=== PATIENT | male | born 1980 | race Caucasian/White ===

== ENCOUNTER 2017-03-13 19:20 | Emergency (ER) | payer OTHER ==
[~2017-03-13] VITALS: Ht 185.4 cm; Wt 119.0 kg
[~2017-03-13 19:20] MED LIST: ACET-1311 PO; BENZ1CAP90 PO; CHOL1000 PO; CLR10 PO; DEXTLIQ PO; DIVA500T3 PO; FLUO20CA35 PO; FLUO40CA8 PO; LEVO75TA5 PO; LISI-461 PO; POLY99.02 OP; TRAZ50TA35 PO
[2017-03-13 19:27] VITALS: TEMP 36.9; Ht 185.4 cm; Wt 119.0 kg
--- NOTE | 2017-03-13 20:05 | DIAGNOSTIC IMAGING REPORT ---
PA CHEST RADIOGRAPH AND UPRIGHT AND SUPINE AP RADIOGRAPHS OF THE ABDOMEN CLINICAL HISTORY: Left lower quadrant abdominal pain. Evaluate for obstruction. COMPARISON STUDY: CT of the abdomen and pelvis December 19, 2015. FINDINGS: Elevation of the right hemidiaphragm is unchanged. No no pneumothorax or pleural effusion is present. Cardiomediastinal silhouette is unremarkable. There is no evidence of pulmonary edema. There are cholecystectomy clips. There is no free air. There is a massive amount of stool within the colon and rectum consistent with fecal impaction. The amount of stool is greater than that shown on CT of December 19, 2015. There is no evidence for a bowel obstruction. IMPRESSION: 1. Massive amount of stool within the rectum and colon consistent with fecal impaction. No bowel obstruction. No free air. 2. No acute cardiopulmonary findings. Electronically signed by: Renny Grant M.D. 03/13/2017 8:04 PM Dictated Date/Time: 03/13/2017 8:02 PM
[2017-03-13] MEDS ORDERED: DOCU100C31 PO (20:38)
[2017-03-13] MEDS ORDERED: [UNRECOGNIZED DRUG - CODE] PO (20:44)
[2017-03-13] MEDS ORDERED: SENN-61 PO (20:46)
[2017-03-13] MEDS ORDERED: GUAI-13 PO (20:49)
--- NOTE | 2017-03-13 22:52 | EMERGENCY ROOM VISIT NOTE ---
History Report prepared by Toño: Stuart Sorenson Under the Supervision of: Dr. Chtio Lawson M.D. First contact with patient: 19:29 Chief Complaint: ABDOMINAL PAIN Stated Complaint: CONSTIPATION,ABD PAIN History of Present Illness The patient is a 36 year old male who presents to the Emergency Room with complaints of constant, cramping abdominal pain beginning last night. The patient states that he had similar symptoms last year. He reports that last year he was told he was severely constipated, and it stopped his urinary flow to the point that he needed a Escoto catheter. He denies being given enema. The patient notes that he took Miralax this morning, and it did not help. He states that he also had a large glass of prune juice for lunch, and it hasn't helped either. The patient reports that his last bowel movement was two days ago, and it was normal. He notes that his pain does not radiate around to his back, and he denies diarrhea, fevers, and vomiting. Source of History: patient Onset: last night Position: abdomen (lower) Quality: cramping Timing: constant Associated Symptoms: No fevers, No vomiting, No back pain, No diarrhea Review of Systems See HPI for pertinent positives & negatives. A total of 10 systems reviewed and were otherwise negative. Past Medical & Surgical Medical Problems: (1) ADD (attention deficit disorder) (2) Mood disorder Family History No pertinent family history Social History Smoking Status: Never Smoker Alcohol Use: none Drug Use: none Marital Status: single Housing Status: assisted living Current/Historical Medications Scheduled Cholecalciferol (Vitamin D3), 5,000 UNITS PO HS Divalproex Sodium (Depakote Er), 500 MG PO BID Docusate Sodium (Docusate Sodium), 100 MG PO DAILY Fluoxetine (Prozac), 20 MG PO DAILY Fluoxetine (Prozac), 40 MG PO DAILY Levothyroxine Sodium (Levothyroxine Sodium), 75 MCG PO DAILY Lisinopril (Zestril), 10 MG PO DAILY Loratadine (Claritin), 10 MG PO HS Trazodone Hcl (Trazodone), 50 MG PO HS Scheduled PRN Acetaminophen (Tylenol), 650 MG PO Q6H PRN for Pain Artificial Tears (Artificial Tears), 1-2 DROPS OP BID PRN for DRY EYES Benzonatate (Tessalon Perles), 200 MG PO TID PRN for Cough Bismuth Subsalicylate (Masthope Bismuth), 262 MG PO Q1H PRN for Dyspepsia Dextromethorphan-Guaifenesin (Diabetic Tussin Dm), 2 TSP PO Q4H PRN for Cough Guaifenesin (Tussin), 2 TSP PO Q4H PRN for Cough Senna (Senokot), 17.2 MG PO DAILY PRN for Constipation Allergies Coded Allergies: Shellfish (Verified Allergy, Unknown, UNKNOWN, 03/13/17) Physical Exam Vital Signs Date Time Temp Pulse Resp B/P (MAP) Pulse Ox O2 Delivery O2 Flow Rate FiO2 03/13/17 19:27 36.9 85 18 128/72 94 Room Air Physical Exam Constitutional: Vital signs reviewed. Eyes: Pupils are equal round reactive to light. Conjunctiva are noninjected. ENT: Pharynx is clear without erythema or exudate. Mucous membranes are moist. Neck supple without meningeal signs. Respiratory: Clear to auscultation bilaterally. Breath sounds are equal bilaterally. Cardiovascular: Regular rate and rhythm. No rubs or gallops. GI: Soft, nondistended and nontender. Bowel sounds are present. Musculoskeletal: No peripheral edema. No CVA tenderness. Integumentary: No cyanosis. Neurological: The patient is awake and alert. No focal deficits. Psychiatric: Normal affect. Medical Decision & Procedures ER Provider Diagnostic Interpretation: Radiology results as stated below per my review and the radiologist's interpretation: PA CHEST RADIOGRAPH AND UPRIGHT AND SUPINE AP RADIOGRAPHS OF THE ABDOMEN CLINICAL HISTORY: Left lower quadrant abdominal pain. Evaluate for obstruction. COMPARISON STUDY: CT of the abdomen and pelvis December 19, 2015. FINDINGS: Elevation of the right hemidiaphragm is unchanged. No no pneumothorax or pleural effusion is present. Cardiomediastinal silhouette is unremarkable. There is no evidence of pulmonary edema. There are cholecystectomy clips. There is no free air. There is a massive amount of stool within the colon and rectum consistent with fecal impaction. The amount of stool is greater than that shown on CT of December 19, 2015. There is no evidence for a bowel obstruction. IMPRESSION: 1. Massive amount of stool within the rectum and colon consistent with fecal impaction. No bowel obstruction. No free air. 2. No acute cardiopulmonary findings. Electronically signed by: Renny Grant M.D. 03/13/2017 8:04 PM Dictated Date/Time: 03/13/2017 8:02 PM Procedure Manual fecal disimpaction Indication: Fecal impaction The patient was placed on his side with knees up to his chest. I did use copious amounts of lubrication. I did remove a large amount of impacted stool that was claylike in consistency. I was unable to reach any more and the patient attempted to have a bowel movement afterwards. He tolerated the procedure well. No complications. No bleeding was observed. ED Course 1928: The patient was evaluated in room B06. A complete history and physical exam was performed. 2038: I reevaluated the patient, and I updated him of his exam results. 2116: I tried to reevaluate the patient, but he was in the restroom. 2151: I reevaluated the patient, and he has not received his enema yet. He was unable to self-administer it. Medical Decision this is a 36-year-old male who presents with left-sided abdominal pain. Differential diagnosis includes constipation, fecal impaction, diverticulitis, proctitis, kidney stone. I did perform a limited focused review of portions of the patient's old chart on the electronic medical record. The patient had a CT scan in November 2015 which showed significant fecal impaction. Medication Reconciliation: I attest that I have personally reviewed the patient' s current medication list. Blood Pressure Screening: Patient was found to have a slightly elevated blood pressure due to circumstances. I do not believe that the patient requires hypertension monitoring. I did evaluate the patient as noted above. The patient is presenting with lower abdominal pain and a history of fecal impaction. He has no tenderness on examination or distention. I did order and personally review the patient's abdominal and chest x-ray as described above. There is no evidence of obstruction. He does have fecal impaction. He was given a soapsuds enema. This was unsuccessful. I did perform a manual disimpaction and removed a large amount of stool without blood. I could not reach any more stool and so he was sent home for outpatient care and follow up with his doctor. The senior living staff member was advised that he may require a second disimpaction at a later time. Impression Primary Impression: Fecal impaction in rectum Additional Impression: Constipation Scribe Attestation The scribe's documentation has been prepared under my direct and personally reviewed by me in its entirety. I confirm that the note above accurately reflects all work, treatment, procedures, and medical decision making performed by me. Departure Information Dispostion Home / Self-Care Referrals Brien Holly M.D. (PCP) Patient Instructions My [facility] Additional Instructions You have been examined and treated today on an emergency basis only. This is not a substitute for, or an effort to provide, complete comprehensive medical care. It is impossible to recognize and treat all injuries or illnesses in a single emergency department visit. It is therefore important that you follow up closely with your physician. Call as soon as possible for an appointment. Return for worsening symptoms or if you develop fever, vomiting, or any other concerning symptoms. Problem Qualifiers Additional Impression: Constipation Constipation type: unspecified constipation type Qualified Codes: K59.00 - Constipation, unspecified
[2017-03-13 23:10] VITALS: BP 128/62; PULSE 80; O2SAT 98
== END 2017-03-13 23:12 | disposition home or self-care (01) ==
LOC: C.EDB 19:21
DX: K56.41 Fecal impaction (principal); F98.8 Other specified behavioral and emotional disorders with onset usually occurring in childhood and adolescence; F39 Unspecified mood [affective] disorder; Z79.899 Other long term (current) drug therapy